=== PATIENT | male | born 1980 | race Two or more races ===

== ENCOUNTER 2019-08-04 12:28 | Emergency (ER) | payer SELFPAY ==
[~2019-08-04] VITALS: Ht 172.7 cm; Wt 93.9 kg
[2019-08-04] MEDS ORDERED: IV NORMAL SALINE 1000ML BAG 1,000 ML IV ONE (13:00)
--- NOTE | 2019-08-04 13:07 | EKG ---
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
[2019-08-04 13:15] LABS: BASO % 1 % (0-3); EOS % 1 % (0-3); HEMATOCRIT 45.6 % (39.0-53.0); HEMOGLOBIN 16.1 g/dL (13.0-17.5); LYMPH # 1.5 x10^3/uL (1.0-4.8); LYMPH % 19 % (24-48); MEAN CORPUSCULAR HEMOGLOBIN 32 pg (25-35); MEAN CORPUSCULAR HGB CONC 35 g/dL (31-37); MEAN CORPUSCULAR VOLUME 91 fL (79-100); MONO # 0.6 x10^3/uL (0.0-1.1); MONO % 8 % (0-9); NEUT # 5.6 x10^3/uL (1.8-7.7); NEUT % 72 % (31-73); PLATELET COUNT 215 x10^3/uL (140-400); RED BLOOD COUNT 5.04 x10^6/uL (4.30-5.70); RED CELL DISTRIBUTION WIDTH 13.6 % (11.5-14.5); WHITE BLOOD COUNT 7.8 x10^3/uL (4.0-11.0)
[2019-08-04 13:24] LABS: CALCIUM 8.9 mg/dL (8.5-10.1); CREATININE 1.3 mg/dL (0.7-1.3); GFR 61.5; POTASSIUM 3.5 mmol/L (3.5-5.1)
[2019-08-04 13:30] LABS: ALBUMIN/GLOBULIN RATIO 0.9 (1.0-1.7); TOTAL BILIRUBIN 0.7 mg/dL (0.2-1.0); TOTAL PROTEIN 8.3 g/dL (6.4-8.2)
[2019-08-04 13:34] LABS: BARBITURATES NEG (NEG); BENZODIAZEPINES NEG (NEG); CANNABINOIDS NEG (NEG); COCAINE NEG (NEG); METHADONE NEG (NEG); OPIATES NEG (NEG); PHENCYCLIDINE NEG (NEG)
[2019-08-04 13:35] LABS: AMPHETAMINE/METHAMPHETAMINE POS (NEG)
[2019-08-04] MEDS ORDERED: levETIRAcetam 1,000 MG in IV DEXTROSE 5% 100ML 100 ML IV ONE (14:00)
--- NOTE | 2019-08-04 14:00 | RAD ---
CT head and cervical spine without contrast History: Seizure, snorted white powder Technique: Noncontrast CT imaging was performed of the head and cervical spine. Multiplanar reconstruction images are submitted. Exposure: One or more of the following individualized dose reduction techniques were utilized for this examination: 1. Automated exposure control 2. Adjustment of the mA and/or kV according to patient size 3. Use of iterative reconstruction technique. Head CT Comparison: None Findings: There is a somewhat heterogeneous round, slightly hyperdense mass in the left middle cranial fossa in the temporal region estimated about 3.4 cm transverse by 3.4 cm AP by 2.7 cm CC. There is adjacent fairly severe low-density of the left temporal lobe extending to left basal ganglia and to the left frontal parietal white matter. There is left to right midline shift of about 0.7 cm. There is mild left uncal herniation. Ventricles are not significantly dilated. Visualized paranasal sinuses and mastoid air cells are aerated. Impression: 1. There is large round mass of the left middle cranial fossa of the temporal region with associated mild hyperdensity which may be mild hemorrhagic component. There is adjacent, prominent low-density probably due to vasogenic edema and degree of [id number] midline shift. However ischemia is not excluded by this exam. There is mild left uncal herniation. Cervical spine CT Comparison: None Findings: No acute cervical spine fracture is identified. Vertebral body stature and AP alignment are within normal limits. Atlanto-axial distance is within normal limits. There is appropriate alignment of lateral masses of C1 relative to C2. Occipital condylar-C1 relationship is maintained. There is rpko-ek-tuxatrct degenerative disc disease C5-C6. There is disc osteophyte complex C5-C6, central canal stenosis estimated about 7 to 8 mm. There is mild narrowing of the left C3-4 neural foramen due to facet and uncovertebral degenerative change. Impression: 1. No acute cervical spine fracture is identified. 2. There is degenerative disc disease and spondylosis greatest C5-6, central canal stenosis at this level about 7-8 mm. Critical results were discussed by telephone with CHRIS CLARK at 08/04/2019 1:57 PM. The Electronically signed by: Frank Bonilla MD (08/04/2019 1:57 PM) [facility]
--- NOTE | 2019-08-04 14:07 | PHYS DOC ---
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 Per EMS report, his family reported that he snorted a white powder substance then he started shaking and passed out. EMS said he was confused when they got here. Upon arrival to the ER here, he was awake and alert. He does not speak Maltese well. He complains of headache, no chest pain, no abdominal pain, no extremities pain, no back pain. All other ROS is negative unless otherwise noted in HPI Review of Systems Review of Systems See above Current Medications Current Medications Current Medications Medications (Trade) Dose Ordered Sig/Nicholas Start Time Stop Time Status Last Admin Dose Admin Levetiracetam 1000 mg/Dextrose 110 ml @ 440 mls/hr 1X ONCE 08/04/19 14:00 08/04/19 14:14 DC 08/04/19 14:28 440 MLS/HR Sodium Chloride 1,000 ml @ 1,000 mls/hr 1X ONCE 08/04/19 13:00 08/04/19 13:59 DC 08/04/19 13:14 1,000 MLS/HR Allergies Allergies Allergies Coded Allergies Type Severity Reaction Last Updated Verified No Known Drug Allergies 08/04/19 No Physical Exam Physical Exam See above Constitutional: Well developed, well nourished, no acute distress, non-toxic appearance. [] HENT: Normocephalic, atraumatic, bilateral external ears normal, oropharynx moist, no oral exudates, nose normal. [] Eyes: PERRLA, EOMI, conjunctiva normal, no discharge. [] Neck: Normal range of motion, no tenderness, supple, no stridor. [] Cardiovascular: SINUS TACHYCARDIA, no murmur [] Lungs & Thorax: Bilateral breath sounds clear to auscultation [] Abdomen: Bowel sounds normal, soft, no tenderness, no masses, no pulsatile masses. [] Skin: Warm, dry, no erythema, no rash. [] Back: No tenderness, no CVA tenderness. [] Extremities: No tenderness, no cyanosis, no clubbing, ROM intact, no edema. [] Neurologic: Alert and oriented X 3, normal motor function, normal sensory function, no focal deficits noted. [] Psychologic: Affect normal, judgement normal, mood normal. [] Current Patient Data Vital Signs Vital Signs Date Time Temp Pulse Resp B/P (MAP) Pulse Ox O2 Delivery O2 Flow Rate FiO2 08/04/19 14:00 114 18 98 08/04/19 12:28 98.7 138/69 (92) Room Air 98.7 Lab Values Laboratory Tests Test 08/04/19 12:54 08/04/19 13:18 White Blood Count 7.8 x10^3/uL (4.0-11.0) Red Blood Count 5.04 x10^6/uL (4.30-5.70) Hemoglobin 16.1 g/dL (13.0-17.5) Hematocrit 45.6 % (39.0-53.0) Mean Corpuscular Volume 91 fL (79-100) Mean Corpuscular Hemoglobin 32 pg (25-35) Mean Corpuscular Hemoglobin Concent 35 g/dL (31-37) Red Cell Distribution Width 13.6 % (11.5-14.5) Platelet Count 215 x10^3/uL (140-400) Neutrophils (%) (Auto) 72 % (31-73) Lymphocytes (%) (Auto) 19 % (24-48) L Monocytes (%) (Auto) 8 % (0-9) Eosinophils (%) (Auto) 1 % (0-3) Basophils (%) (Auto) 1 % (0-3) Neutrophils # (Auto) 5.6 x10^3/uL (1.8-7.7) Lymphocytes # (Auto) 1.5 x10^3/uL (1.0-4.8) Monocytes # (Auto) 0.6 x10^3/uL (0.0-1.1) Eosinophils # (Auto) 0.0 x10^3/uL (0.0-0.7) Basophils # (Auto) 0.0 x10^3/uL (0.0-0.2) Sodium Level 140 mmol/L (136-145) Potassium Level 3.5 mmol/L (3.5-5.1) Chloride Level 102 mmol/L (98-107) Carbon Dioxide Level 23 mmol/L (21-32) Anion Gap 15 (6-14) H Blood Urea Nitrogen 7 mg/dL (8-26) L Creatinine 1.3 mg/dL (0.7-1.3) Estimated GFR (Cockcroft-Gault) 61.5 BUN/Creatinine Ratio 5 (6-20) L Glucose Level 125 mg/dL (70-99) H Calcium Level 8.9 mg/dL (8.5-10.1) Total Bilirubin 0.7 mg/dL (0.2-1.0) Aspartate Amino Transferase (AST) 36 U/L (15-37) Alanine Aminotransferase (ALT) 49 U/L (16-63) Alkaline Phosphatase 65 U/L (46-116) Creatine Kinase 363 U/L (39-308) H Troponin I Quantitative < 0.017 ng/mL (0.000-0.055) Total Protein 8.3 g/dL (6.4-8.2) H Albumin 4.0 g/dL (3.4-5.0) Albumin/Globulin Ratio 0.9 (1.0-1.7) L Ethyl Alcohol Level < 10 mg/dL (0-10) Urine Opiates Screen Neg (NEG) Urine Methadone Screen Neg (NEG) Urine Barbiturates Neg (NEG) Urine Phencyclidine Screen Neg (NEG) Urine Amphetamine/Methamphetamine Pos (NEG) Urine Benzodiazepines Screen Neg (NEG) Urine Cocaine Screen Neg (NEG) Urine Cannabinoids Screen Neg (NEG) Urine Ethyl Alcohol Neg (NEG) Laboratory Tests 08/04/19 12:54 Laboratory Tests 08/04/19 12:54 EKG EKG EKG WAS READ BY THIS PHYSICIAN AT 1235, RATE OF 127 BPM, SINUS TACHYCARDIA. NO STEMI[] Radiology/Procedures Radiology/Procedures [][facility] [address] [place] [address] IMAGING REPORT Signed PATIENT: AFRICA GUPTAACCOUNT: [id number] : 1980 LOCATION: ER AGE: 39 SEX: M EXAM STATUS: REG ER ORD. PHYSICIAN: CHRIS CLARK DO REASON: SNORTED SOME WHITE POWDER, HAD A SEIZURE, PASSED OUT ON FLOOR, AMS PROCEDURE: CT HEAD AND CERVICAL SPINE WO CT head and cervical spine without contrast History: Seizure, snorted white powder Technique: Noncontrast CT imaging was performed of the head and cervical spine. Multiplanar reconstruction images are submitted. Exposure: One or more of the following individualized dose reduction techniques were utilized for this examination: 1. Automated exposure control 2. Adjustment of the mA and/or kV according to patient size 3. Use of iterative reconstruction technique. Head CT Comparison: None Findings: There is a somewhat heterogeneous round, slightly hyperdense mass in the left middle cranial fossa in the temporal region estimated about 3.4 cm transverse by 3.4 cm AP by 2.7 cm CC. There is adjacent fairly severe low-density of the left temporal lobe extending to left basal ganglia and to the left frontal parietal white matter. There is left to right midline shift of about 0.7 cm. There is mild left uncal herniation. Ventricles are not significantly dilated. Visualized paranasal sinuses and mastoid air cells are aerated. Impression: 1. There is large round mass of the left middle cranial fossa of the temporal region with associated mild hyperdensity which may be mild hemorrhagic component. There is adjacent, prominent low-density probably due to vasogenic edema and degree of [id number]-hz-[id number] midline shift. However ischemia is not excluded by this exam. There is mild left uncal herniation. Cervical spine CT Comparison: None Findings: No acute cervical spine fracture is identified. Vertebral body stature and AP alignment are within normal limits. Atlanto-axial distance is within normal limits. There is appropriate alignment of lateral masses of C1 relative to C2. Occipital condylar-C1 relationship is maintained. There is [id number]-jb-[id number] degenerative disc disease C5-C6. There is disc osteophyte complex C5-C6, central canal stenosis estimated about 7 to 8 mm. There is mild narrowing of the left C3-4 neural foramen due to facet and uncovertebral degenerative change. Impression: 1. No acute cervical spine fracture is identified. 2. There is degenerative disc disease and spondylosis greatest C5-6, central canal stenosis at this level about 7-8 mm. Critical results were discussed by telephone with CHRIS CLARK at 08/04/2019 1:57 PM. The Electronically signed by: Donna Lofton MD (08/04/2019 1:57 PM) [facility] DICTATED and SIGNED BY: DONNA LOFTON MD DATE: 08/04/19 1330 Course & Med Decision Making Course & Med Decision Making Pertinent Labs and Imaging studies reviewed. (See chart for details) Patient was awake alert oriented, no neurological deficit. He is in no acute distress at this time. he was given 1 g of Keppra IV. Patient was found to have a mass in his brain, causing seizure activity, left shift, mild herniation. Dr. Cain Giordano, Neurosurgeon crewman [id number] AT [facility], WAS CALLED, RECOMMENDED TO TRANSFER PATIENT TO . TRANSFER CENTER WAS CALLED, DR. GIULIANA VASQUES, REVIEWED CT SCAN, AGREED TO ACCEPT PATIENT TO ICU THERE. PATIENT WAS INFORMED ABOUT HIS FINDINGS AND PENDING TRANSFER TO FOR NEUROSURGERY EVALUATION. HE WAS AMENABLE TO PLAN OF CARE. Dragon Disclaimer Dragon Disclaimer This electronic medical record was generated, in whole or in part, using a voice recognition dictation system. Departure Departure Impression: Primary Impression: Brain mass Additional Impressions: Seizure Substance abuse Disposition: 02 TRANSFER [facility] (TRANSFERED TO [facility], ACCEPTED BY DR. GIULIANA VASQUES, NEUROSURGEON) Condition: STABLE Referrals: UNKNOWN PCP NAME (PCP) Problem Qualifiers CHRIS CLARK DO Aug 04, 2019 14:07
[2019-08-04 16:58] VITALS: BP 128/80
== END 2019-08-04 17:25 | disposition short-term general hospital (02) ==
LOC: ER 12:28
DX: G93.89 Other specified disorders of brain (principal); R56.9 Unspecified convulsions; F14.10 Cocaine abuse, uncomplicated; F15.20 Other stimulant dependence, uncomplicated; R55 Syncope and collapse
CPT/HCPCS: 36415; 70450; 72125; 80053; 80307; 82550; 84484; 85025; 93005; 96361; 96365; 99285; G0480; J1953; J7030